=== PATIENT | male | born 1935 | race Caucasian/White ===

== ENCOUNTER 2016-12-18 07:05 | Day surgery (SDC) | payer MEDICARE ==
[2016-12-16 13:05] LABS: HEMATOCRIT 47.2 % (40.0-51.0); HEMOGLOBIN 16.2 g/dL (13.6-17.8)
[2016-12-16 13:24] LABS: BUN (BLOOD UREA NITROGEN) 19 MG/DL (6-23); CALCIUM, SERUM 9.4 MG/DL (8.5-10.4); CHLORIDE, SERUM 106 MMOL/L (96-112); CO2 (CARBON DIOXIDE) 30 MMOL/L (24-34); CREATININE 1.05 MG/DL (0.70-1.30); GFR AFRICAN AMERICAN 78 ML/MIN (>=60); GFR NON AFRICAN AMERICAN 67 ML/MIN (>=60); GLUCOSE, SERUM 76 MG/DL (60-99); POTASSIUM, SERUM 4.3 MMOL/L (3.5-5.3); SODIUM, SERUM 141 MMOL/L (135-148)
--- NOTE | ~2016-12-18 | OP ---
Record Of Operation [facility] [address] [place]. [address] NAME: ELIUD SEPULVEDA : 39 STATUS : [facility]#: [id number] AGE: 81 ADM/REG DATE : 12/18/16 MR#: [id number] REPORT SERV DATE: 12/21/16 DICTATED BY: TOM LYONS DATE: 12/21/16 REPORT STATUS : Draft TRANSCRIBED BY: MODL DATE: 12/21/16 DATE OF PROCEDURE: 12/18/2016 PREOPERATIVE DIAGNOSIS: Bilateral chronic pansinusitis. OPERATIVE PROCEDURE: Bilateral endoscopic maxillary antrostomy with total ethmoidectomy, frontal sinusotomy, and bilateral sphenoid sinusotomy with tissue removal. SURGEON: Tom Lyons M.D. ANESTHESIA: General endotracheal. ESTIMATED BLOOD LOSS: 250 mL. INTRAOPERATIVE FLUIDS: 1 liter of crystalloid. INTRAOPERATIVE FINDINGS: Moderate to extensive mucosal thickening involving the maxillary and ethmoid sinuses on both sides with inflammatory tissue extending into the nasal frontal recess on both sides. Moderate chronic sinusitis involving the sphenoid sinuses, bilaterally, with polypoid disease within the sphenoid sinuses which was debrided. There was purulent drainage identified within the ethmoid air cells, particularly an isolated air cell in the anteroinferior portion of the ethmoid sinuses. This purulent material was collected in a Lukens trap and sent for routine culture. PROCEDURE: The patient was identified in the holding room, transported to the operating room. In the operating room, the patient was placed on the operating table in the supine position. Following induction of anesthesia, the patient was intubated without difficulty. Afrin-soaked pledgets were placed to the nose, bilaterally. The patient was prepped and draped in preparation for his nasal surgery. The Afrin packs were removed. A rigid nasal endoscopy was performed, and the above findings were noted. The uncinate process was injected with 1% lidocaine with 1:100,000 epinephrine, bilaterally. Beginning on the right side, the uncinate process was removed. Additional bone and soft tissue was removed with the use of the sinus shaving instrumentation to identify the natural maxillary sinus ostium. Once the natural maxillary sinus ostium was identified, the sinus was enlarged removing tissue posteriorly and inferiorly. Examination of sinus with the 30-degree scope revealed a moderate amount of mucosal thickening within the maxillary sinus with no purulent drainage or debris identified. There was, however, purulent drainage arising from the anterior ethmoid air cells on the right side. This drainage was collected in a Lukens trap and sent for routine culture. The ethmoid sinuses were opened using blunt dissection. This dissection was carried posteriorly to the face of the sphenoid sinus. There was a large posterior ethmoid air cell extending over the top of the sphenoid sinus which was included in the dissection. Dissection was assisted with the use of the intraoperative navigation system. Dissection then carried along the skull base for removal of the more anterior ethmoid air cells. With the assistance of the 30 and 70 degree scope, additional bone and soft tissue was removed from the area of the nasal frontal recess extending into the frontal sinus. There was a spur of bone which could not be adequately debrided which was creating Record Of Operation [facility] [address] [facility] [place]. [address] NAME: ELIUD SEPULVEDA : 39 STATUS : [facility] PAT#: [id number] AGE: 81 ADM/REG DATE : 12/18/16 MR#: [id number] REPORT SERV DATE: 12/21/16 DICTATED BY: TOM LYONS DATE: 12/21/16 REPORT STATUS : Draft TRANSCRIBED BY: YOHAN DATE: 12/21/16 difficulty in accessing the right frontal sinus. There was, however, a wide opening created into the frontal sinus above the level of this bony spur. With the inflammatory tissue identified around the nasofrontal recess, I did opt to place a mini propel splint to this area once the opening was created. Returning to the zero-degree scope, a small portion of the superior turbinate was removed with the sinus shaving instrumentation. Working medial to this area, the natural sphenoid sinus ostium was identified. The sphenoid sinus ostium was enlarged removing tissue medially and inferiorly. The sinus was irrigated. Examination of the sinus with the zero-degree scope revealed polypoid tissue which was carefully debrided. There was a modest amount of bleeding from the tissues around the sphenoid sinus which was controlled with Afrin packing. Following removal of this packing, no significant residual bleeding was identified. There was some residual bleeding in the posterior ethmoid sinuses on the right side which was controlled with Surgiflo. The Surgiflo was then carefully evacuated and no residual bleeding was identified. A left endoscopic maxillary antrostomy, total ethmoidectomy, frontal sinusotomy, and sphenoid sinusotomy with tissue removal was then performed in similar fashion on the left side. At the end of the operative procedure, there was no significant bleeding. Stammberger dressing was applied to the middle meatus, bilaterally. The patient was subsequently awakened from anesthesia, extubated in the operating room, and transported to the recovery room in good condition. The patient tolerated the procedure well. There were no apparent complications. SPECIMENS: Included bilateral maxillary, ethmoid, frontal, and sphenoid sinus contents with aspirate from the right ethmoid air cells for routine culture. TF/MODL Tom Lyons M.D. / [id number] CC: Coni Tello M.D.
[~2016-12-18 07:05] MED LIST: AMIT10 PO; ASAB PO; BETAMETHASONE VAL TOP; CRESTOR5 MG PO; FISH OIL1200 MG PO; FLOMAX4 PO; NORV25 PO; PRILOSEC40 MG PO; SUPER B COMP PO; VITC500 PO
== END 2016-12-18 15:22 | disposition home or self-care (01) ==
LOC: SDC 07:05
PROVIDERS: Otolaryngology
DX: J32.8 Other chronic sinusitis (principal); J33.0 Polyp of nasal cavity; I10 Essential (primary) hypertension; K21.9 Gastro-esophageal reflux disease without esophagitis; Z85.46 Personal history of malignant neoplasm of prostate; Z88.1 Allergy status to other antibiotic agents; Z90.49 Acquired absence of other specified parts of digestive tract; Z98.890 Other specified postprocedural states
CPT/HCPCS: 80048; 85014; 85018; 87015; 87070; 87075; 87102; 87116; 88305; 93005; A9270-GY; J0295; J2250; J2370; J2405; J2710; J3010